=== PATIENT | female | born 1995 | race Two or more races ===

== ENCOUNTER 2023-03-23 09:04 | Outpatient (REF) | payer OTHER, SELFPAY ==
--- NOTE | ~2023-03-23 | US_ITS ---
EXAMINATION: US ABDOMEN COMPLETE CLINICAL INFORMATION: Abdominal pain. COMPARISON: None available. TECHNIQUE: Real-time imaging of the abdominal viscera. FINDINGS: PANCREAS: Normal. ABDOMINAL AORTA: The proximal, mid, and distal segments are normal in caliber. INFERIOR VENA CAVA: Visualized portions are normal. LIVER: The liver is normal in size. The liver contour is normal. Parenchymal echogenicity is normal. A 2.4 cm echogenic liver lesion with circumscribed margins . No color Doppler flow was applied limiting assessment. There is no intrahepatic biliary duct dilatation seen. GALLBLADDER: Normal. The gallbladder is physiologically distended without evidence of stones, sludge, polyps, wall thickening or pericholecystic fluid. COMMON BILE DUCT: Normal in caliber measuring 0.17 cm in diameter. RIGHT KIDNEY: Normal. No hydronephrosis. No renal calculi or focal parenchymal lesions. The kidney measures 10.4 cm in maximum dimension. LEFT KIDNEY: Normal. No hydronephrosis. No renal calculi or focal parenchymal lesions. The kidney measures 10.3 cm in maximum dimension. SPLEEN: Normal. The spleen measures 10.0 cm in maximum dimension. FREE FLUID: None. US/US abdomen complete IMPRESSION: A 2.4 cm echogenic liver lesion, was suboptimally evaluated given no color Doppler flow was applied to the lesion. In the absence of known malignancy or risk factors for hepatic malignancy this is likely reflect a hemangioma if Doppler flow is determined to be absent, and therefore recommend patient return for limited abdominal ultrasound targeted to this lesion unless there is a history of known malignancy or risk factors for hepatic malignancy then MR abdomen could be obtained for definitive characterization.
== END 2023-03-23 09:05 | disposition home or self-care (01) ==
LOC: HO.UMASIMG 09:04
PROVIDERS: Visit Provider Family Medicine
DX: K21.9 Gastro-esophageal reflux disease without esophagitis (principal); B37.9 Candidiasis, unspecified
CPT/HCPCS: 76700

== ENCOUNTER 2023-04-13 11:05 | Outpatient (REF) | payer OTHER, SELFPAY | END 2023-04-13 11:06 | disposition home or self-care (01) | LOC: HO.UMASIMG 11:05 | PROVIDERS: Visit Provider Family Medicine | DX: K21.9 Gastro-esophageal reflux disease without esophagitis (principal) | CPT/HCPCS: 76705 ==